=== PATIENT | male | born 1980 | race Caucasian/White ===

== ENCOUNTER 2017-08-17 08:38 | Emergency (ER) | payer OTHER ==
[~2017-08-17] VITALS: Ht 182.9 cm; Wt 107.3 kg
[~2017-08-17 08:38] MED LIST: METFORMIN HCL500 M4 PO; METHADONE10 MG PO; METHADONE10 MG/1 M1 PO
[2017-08-17 10:14] LABS: BASOPHIL (%) 0.1 % (0-1); EOSINOPHIL COUNT 0.2 K/uL (0-0.3); HEMATOCRIT 37.3 % (38.0-50.0); HEMOGLOBIN 12.5 G/DL (12.5-16.6); IMMATURE GRANULOCYTE (%) 0.5 % (0.0-0.7); LYMPHOCYTE (%) 33.4 % (15-42); LYMPHOCYTE COUNT 2.8 K/uL (1.0-2.8); MCHC 33.5 G/DL (30.0-36.0); MCV 80.6 FL (86-99); MONOCYTE COUNT 0.8 K/uL (0-0.8); NEUTROPHIL COUNT 4.7 K/uL (1.8-6.4); PLATELET COUNT 240 K/uL (156-360); RBC DIS.WIDTH-CV 13.2 % (11.8-14.6); RBC DIS.WIDTH-SD 38.4 % (39-53); RED BLOOD COUNT 4.63 M/uL (4.00-5.50); WHITE BLOOD COUNT 8.5 K/uL (4.1-10.2)
[2017-08-17 10:21] LABS: ALBUMIN 3.5 g/dL (3.2-4.8); CHLORIDE 101 mEq/L (99-109); POTASSIUM 4.5 mEq/L (3.7-5.4); SODIUM 136 mEq/L (136-147)
[2017-08-17 10:21] LABS: INTER. NORMALIZED RATIO 1.1
[2017-08-17 10:22] LABS: CARBON DIOXIDE (BICARBONATE) 32.8 MEQ/L (20-31)
[2017-08-17 10:23] LABS: GLUCOSE 383 mg/dL (70-99); TOTAL PROTEIN 6.4 g/dL (6.4-8.3)
[2017-08-17 10:25] LABS: TOTAL BILIRUBIN 0.3 mg/dL (0.0-1.0)
[2017-08-17 10:27] LABS: ALKALINE PHOSPHATASE 117 IU/L (3-129); CREATININE 0.8 mg/dL (0.6-1.3); GFR ESTIMATE (CALCULATED) > 59 mL/min/ (58.99-99999)
[2017-08-17 10:28] LABS: UREA NITROGEN (BUN) 12 mg/dL (9-23)
[2017-08-17 10:29] LABS: AST (GOT) 10 IU/L (2-34)
[2017-08-17 10:30] LABS: ALT (GPT) 19 IU/L (3-49)
[2017-08-17] MEDS ORDERED: BACTRIM,SEPT1 TABLET PO (12:01)
[2017-08-17] MEDS ORDERED: LEVAQUIN750 MG PO (12:01)
[2017-08-17] MEDS ORDERED: ULTRAM50 MG PO (12:02)
[2017-08-17 12:32] VITALS: BP 150/97
== END 2017-08-17 12:34 | disposition home or self-care (01) ==
LOC: EME 08:38
PROVIDERS: Emergency Medicine
DX: L03.116 Cellulitis of left lower limb (principal); E11.65 Type 2 diabetes mellitus with hyperglycemia; R60.0 Localized edema; Z79.4 Long term (current) use of insulin; E78.5 Hyperlipidemia, unspecified; I10 Essential (primary) hypertension; I25.2 Old myocardial infarction; J45.909 Unspecified asthma, uncomplicated; Z88.5 Allergy status to narcotic agent; F17.200 Nicotine dependence, unspecified, uncomplicated
CPT/HCPCS: 80053; 82010; 82803; 85025; 85610; 85730; 93971; 99281; 99285